=== PATIENT | male | born 1955 | race Caucasian/White ===

== ENCOUNTER → 2018-05-12 | Outpatient (REF) | payer BC, OTHER ==
[~2018-05-12] MED LIST: DAR100 PO; GLUC500C29 PO; MULT-1319 PO; SAW160CA24 PO
== END ==
LOC: ZZSENDIN 12:00
PROVIDERS: ATTEND Urology
DX: C61 Malignant neoplasm of prostate (principal); N41.1 Chronic prostatitis
CPT/HCPCS: 88305; 88344

== ENCOUNTER → 2018-05-26 | Outpatient (CLI) | payer OTHER ==
[2018-05-26 19:53] LABS: PLATELET COUNT, AUTOMATED 151 K/uL (150-450)
== END ==
LOC: LAB 18:55
PROVIDERS: ATTEND Urology
DX: C61 Malignant neoplasm of prostate (principal)
CPT/HCPCS: 36415; 82040; 82247; 82248; 82310; 82374; 82435; 82565; 82947; 84075; 84132; 84155; 84295; 84450; 84460; 84520; 85025

== ENCOUNTER → 2018-05-29 | Outpatient (CLI) | payer OTHER ==
[~2018-05-29] MED LIST changes: +IOPAMIDOL 76% 100 ML INFUS BTL 100 ML ONE
--- NOTE | 2018-05-29 09:25 | RADIOLOGY IMAGING REPORT ---
FACILITY: [facility] [place] PATIENT NAME: Chang Thomas : 1955 MR: [id number] V: [id number] EXAM DATE: ORDERING PHYSICIAN: GARLAND WATTS TECHNOLOGIST: Location: [facility] [place] Patient: Chang Thomas : 1955 Visit/Account:[id number] Date of Sevice: 05/29/2018 2 VIEWS CHEST INDICATION: Prostate cancer. COMPARISON: None available FINDINGS: Cardiomediastinal silhouette and pulmonary vessels within normal limits. There is no focal infiltrate or lobar consolidation. There is no pneumothorax or pleural effusion. No nodule. Small scar seen in the costophrenic angle region the left lung. Upper abdomen is unremarkable. No acute bony abnormality or discrete bony lesions. IMPRESSION: 1. No acute cardiopulmonary process. No discrete radiographic indication of metastatic disease. Report Dictated By: Jackson Flor at 05/29/2018 9:20 AM Report E-Signed By: Jackson Flor at 05/29/2018 9:21 AM WSN:[id number]
--- NOTE | 2018-05-29 09:48 | RADIOLOGY IMAGING REPORT ---
FACILITY: [facility] PATIENT NAME: Chang Thomas : 1955 MR: [id number] V: [id number] EXAM DATE: ORDERING PHYSICIAN: GARLAND WATTS TECHNOLOGIST: Location: [facility] - [place] Patient: Chang Thomas : 1955 Visit/Account:[id number] Date of Sevice: 05/29/2018 ABDOMEN/PELVIS W/WO CONTRAST HISTORY: Recent diagnosis of prostate cancer. TECHNIQUE: CT abdomen and pelvis without and with intravenous contrast. One of the following dose optimization techniques was utilized in the performance of this exam: Autom ated exposure control; adjustment of the mA and/or kV according to the patient's size; or use of an i terative reconstruction technique. Specific details can be referenced in the facility's radiology C T exam operational policy. CONTRAST: 75 mL Isovue-370. COMPARISON: None. FINDINGS: Visualized lung bases: Nonspecific partial visualization of focal heterogeneous consolidation in the left lower lobe measuring approximately 2.2 x 3.2 cm (image 1 of series 2). There is a central smal l calcification. Mild atelectasis and/or scarring within the lung bases. Moderate circumferential t hickening of the visualized distal esophagus with small adjacent lymph nodes. Tiny hiatal hernia. Hepatobiliary: Negative. Spleen: Negative. Adrenals: Negative. Pancreas: Negative. Kidneys/: 1.9 cm cyst within the right kidney. Prostate is normal in size measuring 4.5 cm in transverse diameter. There is no gross prostatic mass or evidence fracture prostatic extension. Kidneys and bladder are otherwise unremarkable. GI: Mild chronic appearing wall thickening of the sigmoid colon and rectum. Mild descending and sig moid diverticulosis without evidence for diverticulitis. Appendix is not visualized and may be absen t. Vessels/spaces/nodes: Negative. No visualized lymphadenopathy. Bones/soft tissues: Postsurgical changes within the bilateral inguinal regions without complication. No acute or concerning osseous abnormality. No visualized bone metastasis. Moderate degenerative disc disease at L5-S1. IMPRESSION: 1. No visualized prostatic mass or evidence for extraprostatic extension. 2. No visualized metastatic disease. 3. Partial visualization of nonspecific heterogeneous consolidation within the left lung base measur ing at least 2.2 x 3.2 cm. This is favored infectious/inflammatory in etiology. Follow-up dedicated CT of the chest is recommended. 4. Moderate nonspecific circumferential thickening of the distal esophagus with small adjacent lymph nodes. This could be related to underlying esophagitis/reflux although malignancy cannot be exclude d. Consider endoscopy for further evaluation. 5. Additional incidental/chronic findings, as above. Report Dictated By: Haider Oviedo MD at 05/29/2018 9:36 AM Report E-Signed By: Haider Oviedo MD at 05/29/2018 9:43 AM WSN:[id number]
== END ==
LOC: CT 03:02
PROVIDERS: ATTEND Urology
DX: R91.8 Other nonspecific abnormal finding of lung field (principal)
CPT/HCPCS: 71046; 74178; Q9967

== ENCOUNTER 2018-09-04 11:19 | Outpatient (RCR) | payer OTHER ==
[~2018-09-04 11:19] MED LIST changes: -IOPAMIDOL 76% 100 ML INFUS BTL 100 ML ONE; +MELO-149 PO; +OMEP-137 PO; +RANI-366 PO; +SIMV-49 PO; +TAMS0.4C25 PO
== END 2018-09-06 ==
LOC: RAON 11:19
PROVIDERS: ATTEND Radiology Radiation Oncology
DX: Z51.0 Encounter for antineoplastic radiation therapy (principal); C61 Malignant neoplasm of prostate
CPT/HCPCS: 77280; 77290; 77300; 77301; 77338; 77385; 77386; 99202

== ENCOUNTER 2018-11-05 11:07 | Outpatient (RCR) | payer OTHER | END 2018-12-06 | LOC: RAON 11:07 | PROVIDERS: ATTEND Radiology Radiation Oncology | DX: Z51.0 Encounter for antineoplastic radiation therapy (principal); C61 Malignant neoplasm of prostate; R53.83 Other fatigue | CPT/HCPCS: 77280; 77290; 77300; 77301; 77336; 77338; 77385; 77386 ==

== ENCOUNTER 2018-12-22 09:32 | Outpatient (RCR) | payer OTHER ==
[2018-12-17 08:59] VITALS: BP 139/86
--- NOTE | 2018-12-22 09:46 | NUR ---
Pt requested another massage certificate. SW got one from the physical therapist and gave it to the patient.
--- NOTE | 2018-12-22 13:02 | ONCOLOGY FOLLOW UP NOTE ---
EVENT DATE: December 22, 2018 CHIEF COMPLAINT/REASON FOR VISIT Prostate carcinoma, status post external beam radiotherapy. Patient is here for oncology surveillance. ONCOLOGY HISTORY 1. Diagnosis of [place] 3+3=6/10 adenocarcinoma of the prostate. Tumor was located in 4 of 12 core biopsies. Tumor was diagnosed May 14, 2018. Volume of tumor was 2-90%. Highest PSA prior to treatment was 7 ng/mL. 2. Patient received external beam radiation therapy with progressive field reduction approach. Combined radiation dose was 7920 cGy in 44 fractions. Treatment completed November 05, 2018. INTERVAL HISTORY Patient was seen with his for a followup appointment. Overall, doing remarkably well. Denies any significant voiding issues. Baseline nocturia x2. Empties quite well using Flomax 0.4 mg b.i.d. No dysuria. No bowel complaints. No new or persistent bone pain. He does have some chronic arthritic pain in his knees and hands. Mild urinary frequency at times in the evening due to fluid intake. He does enjoy drinking coffee and tea. Last PSA was 1.1 ng/mL, which was drawn on December 17, 2018. Patient scheduled to have repeat blood work, I believe, in January through the [facility]. He will see Dr. Santana in [place] at that time and has a followup appointment with Dr. Acosta afterwards. AUA symptom score was 7, stable. MEDICATIONS 1. Zantac. 2. Simvastatin. 3. Prilosec. 4. Meloxicam. 5. Tamsulosin. 6. Saw-Golden. 7. MDI. 8. Glucosamine chondroitin. ALLERGIES CODEINE, TOLECTIN. PAST MEDICAL HISTORY 1. Prostate carcinoma. 2. Degenerative joint disease. PAST SURGERY HISTORY 1. Prostate biopsy, 2017. 2. Appendectomy, 2007. 3. Lumbar spine diskectomy, 2006, by Dr. Contreras. SOCIAL/FAMILY HISTORY Patient enjoys hunting. Father has CVA at age 75. Maternal uncle had prostate cancer. Nonsmoker. Prior use of chewing tobacco. with two children. He is retired. Quit smokeless tobacco in 1997. 14-POINT COMPREHENSIVE REVIEW OF SYSTEMS Notable for nocturia x2, joint pain and stiffness. Otherwise unremarkable. PHYSICAL EXAM GENERAL: Pleasant 63-year old male, medium build. Weight 244, BP 123/79, pulse 63, respirations 16, O2 sat 91%. LUNGS: Clear bilaterally. CARDIOVASCULAR: Heart sounds regular. No audible murmur. No lymphadenopathy. ABDOMEN: Soft. No gross organomegaly. RECTAL: Deferred until he is further out from treatment since PSA is stable. EXTREMITIES: No edema or cyanosis. NEUROLOGIC: Intact. IMPRESSION Overall, I am very pleased with the patient's course to date. PSA has dropped from the 5 to [address] down to 1.1 ng/mL. I told the patient I would like to see the PSA in the target range of 0-2 ideally and so far he is already there. He will follow up with Dr. Acosta the end of January. I would like to see him again in six months, around July of early August. I would like him to have PSA, CBC and CMP through the [facility] at that juncture if possible prior to the appointment. He will turn 64, I believe, in January this year so he will have both [facility] benefits and Medicare at that time. No medication changes today. MICHAEL
--- NOTE | 2018-12-22 13:52 | ONCOLOGY COMPLETION NOTE ---
EVENT DATE: December 22, 2018 DIAGNOSES 1. Marked volume [place] 3+3=6 adenocarcinoma of the prostate occupying 4 of 12 core biopsies. Tumor volume estimated at 2-90%. Prostate cancer was diagnosed on ultrasound-guided biopsy May [address] Acosta. Pre-treatment PSA in the 5-7 ng/mL range. 2. Patient elected for external beam radiation therapy, which was delivered with progressive field reduction technique. Field reductions were at 4500 cGy and 6300 cGy. The final radiation dose was 7920 cGy to the prostate target volume, completed in 34 fractions. Radiation course was completed on November 05, 2018. TOLERANCE No significant adverse effects. Minor increase in urinary urgency and frequency, which was controlled with Flomax at 0.4 mg b.i.d. DISPOSITION Patient has completed the radiation program. He will follow up in December with a PSA and also see Dr. Acosta at the end of January with PSA at that time. He will be seeing Dr. Santana in [place]. All questions were answered to the patient's satisfaction. Once the PSA is stable under 2, we will start moving towards an every six month surveillance program for up to five years post therapy and then modify based on how he is doing at that time. Thank you for the referral and opportunity to participate in this gentleman's care. Please do not hesitate to contact me if there are any questions or concerns going forward. He has good urinary control at this time with minimal, if any, rectal bother so he is pleased with his treatment selection. [facility]achel
== END 2018-12-28 11:52 | disposition home or self-care (01) ==
LOC: RAON 09:32
PROVIDERS: ATTEND Radiology Radiation Oncology
DX: C61 Malignant neoplasm of prostate (principal); Z92.3 Personal history of irradiation
CPT/HCPCS: 36415; 84153; 99212